=== PATIENT | female | born 1985 | race Caucasian/White ===

== ENCOUNTER 2019-02-13 09:12 | Emergency (ER) | payer SELFPAY ==
[2019-02-13] MEDS ORDERED: Ketorolac 60 MG/2 ML SDV IM ONE (09:50)
--- NOTE | 2019-02-13 09:58 | EDM.PDOC ---
ED HPI GENERAL MEDICAL PROBLEM - General Chief Complaint: Back Pain or Injury Stated Complaint: INJURY TO LOWER BACK Time Seen by Provider: 02/13/19 09:40 Source of Information: Reports: Patient, Old Records, RN History Limitations: Reports: No Limitations - History of Present Illness INITIAL COMMENTS - FREE TEXT/NARRATIVE: 33 yo female sat on bleachers much of the weekend for her children's games. At work today her back was a little stiff in the lower part and when she was putting [employer] on a client her low back spasmed. No self tx. No hx of this same problem. Drove herself to work today. No LE numbness or incontinence. Onset: Today Onset Date: 02/13/19 Duration: Minutes:, Constant Location: Reports: Back (low, bilat.) Quality: Reports: Ache Severity: Moderate Improves with: Reports: Other (standing) Worsens with: Reports: Other (sitting, bending, lifting) Context: Reports: Other (see HPI) Associated Symptoms: Reports: No Other Symptoms Treatments TRANSITION LEAD: Reports: Other (see below) (none) back Pain Score (Numeric/FACES): 6 - Related Data Allergies Allergy/AdvReac Type Severity Reaction Status Date / Time amoxicillin Allergy Hives Verified 02/13/19 09:34 Home Meds: Home Meds Cyclobenzaprine [Flexeril] 5 - 10 mg PO TID PRN #10 tab 02/13/19 [Rx] Past 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: - Past Surgical History GI Surgical History: Reports: Cholecystectomy Female Surgical History: Reports: Section Social & Family History - Tobacco Use Smoking Status *Q: Never Smoker - Caffeine Use Caffeine Use: Reports: Coffee - Recreational Drug Use Recreational Drug Use: No ED ROS GENERAL - Review of Systems Review Of Systems: See Below Constitutional: Reports: No Symptoms HEENT: Reports: No Symptoms Respiratory: Reports: No Symptoms Cardiovascular: Reports: No Symptoms GI/Abdominal: Reports: No Symptoms : Reports: No Symptoms Musculoskeletal: Reports: Back Pain (low) Skin: Reports: No Symptoms Neurological: Reports: No Symptoms ED EXAM,LOWER BACK PAIN/INJURY - Physical Exam Exam: See Below Exam Limited By: No Limitations General Appearance: Alert, WD/WN, Mild Distress Eye Exam: Bilateral Eye: Normal Inspection Ears: Normal External Exam, Normal Canal, Hearing Grossly Normal Nose: Normal Inspection, No Blood Throat/Mouth: Normal Inspection, Normal Lips, Normal Voice, No Airway Compromise Head: Atraumatic, Normocephalic Neck: Normal Inspection Respiratory/Chest: No Respiratory Distress, No Accessory Muscle Use Cardiovascular: Regular Rate, Rhythm Back Exam: Normal Inspection, Decreased Range of Motion (due to pain), Muscle Spasm (paraspinous at lumbar level.), Paraspinal Tenderness. No: Full Range of Motion, CVA Tenderness (R), CVA Tenderness (L), Vertebral Tenderness Extremities: Normal Inspection Neurological: Alert, Normal Mood/Affect, Normal Dorsiflexion, CN II-XII Intact, No Motor/Sensory Deficits, Oriented x 3 Psychiatric: Normal Affect, Normal Mood Skin Exam: Warm, Dry, Intact, Normal Color, No Rash Course - Vital Signs Last Recorded V/S: Last Vital Signs Temp 36.5 C 02/13/19 09:33 Pulse 89 02/13/19 09:33 Resp 16 02/13/19 09:33 BP 123/80 02/13/19 09:33 Pulse Ox 98 02/13/19 09:33 - Orders/Labs/Meds Meds: Medications Discontinued Medications Generic Name Dose Route Start Last Admin Trade Name Freq PRN Reason Stop Dose Admin Ketorolac Tromethamine 60 mg 02/13/19 09:50 Toradol IM 02/13/19 09:51 ONETIME ONE Departure - Departure Time of Disposition: 10:00 Disposition: Home, Self-Care 01 Condition: Fair Clinical Impression: Low back strain Qualifiers: Encounter type: initial encounter Qualified Code(s): S39.012A - Strain of muscle, fascia and tendon of lower back, initial encounter - Discharge Information *PRESCRIPTION DRUG MONITORING PROGRAM REVIEWED*: No *COPY OF PRESCRIPTION DRUG MONITORING REPORT IN PATIENT LUIS ARMANDO: No Prescriptions: Cyclobenzaprine [Flexeril] 5 - 10 mg PO TID PRN #10 tab PRN Reason: Pain Instructions: Lumbosacral Strain Referrals: Edwige Blood CNM [Primary Care Provider] - Forms: ED Department Discharge, ED Return to Work/School Form Additional Instructions: No lifting, bending, or twisting. Take ibuprofen 600 mg every 6 hrs with food. Add acetaminophen as needed. Flexeril 5-10 mg every 8 hrs for muscle spasm. Moist heat and massage to area. Recheck with your doctor if not improving by 48 hrs.
== END 2019-02-13 10:15 | disposition home or self-care (01) ==
LOC: JP.ED 09:12
DX: S39.012A Strain of muscle, fascia and tendon of lower back, initial encounter (principal); X58.XXXA Exposure to other specified factors, initial encounter
CPT/HCPCS: 96372; 99283; J1885